=== PATIENT | female | born 1985 | race Caucasian/White ===

== ENCOUNTER → 2021-07-22 12:53 | Outpatient (BNVA) | payer MEDICAID, SELFPAY | PROVIDERS: Visit Provider Physician Assistant ==

== ENCOUNTER → 2021-09-29 07:56 | Outpatient (BNVA) | payer MEDICAID, SELFPAY | PROVIDERS: Visit Provider Surgery ==

== ENCOUNTER 2021-09-30 11:20 | Outpatient (REF) | payer MEDICAID, SELFPAY ==
--- NOTE | ~2021-09-30 | XR_ITS ---
EXAMINATION: XR CHEST CLINICAL INFORMATION: Obesity. COMPARISON: None TECHNIQUE: 2 views of the chest were obtained. FINDINGS: No significant abnormality is noted involving the heart, lungs, mediastinum, bony thorax or soft tissues. XR/XR chest 2V IMPRESSION: Unremarkable examination.
--- NOTE | 2021-09-30 11:29 | ECG_ITS ---
Test Reason : na Blood Pressure : / mmHG Vent. Rate : 076 BPM Atrial Rate : 076 BPM P-R Int : 166 ms QRS Dur : 098 ms QT Int : 392 ms P-R-T Axes : 040 002 026 degrees QTc Int : 441 ms Normal sinus rhythm Minimal voltage criteria for LVH, may be normal variant ( R in aVL ) Borderline ECG No previous ECGs available Referred By: Waqar Espinal Electronically Signed By:DONNIE CONTE MD
[2021-09-30 11:50] LABS: MANUAL DIFF FLAG NO
[2021-09-30 12:07] LABS: Basophils Percent Auto 0.4 % (0-2); Eosinophils Absolute Auto 0.4 X10*3/uL (0.0-0.4); Eosinophils Percent Auto 5.7 % (0-4); Hematocrit 34.4 % (37.0-47.0); Hemoglobin 10.9 g/dl (12.0-16.0); Imm Gran Abs Auto 0.02 X10*3/uL (0.00-0.03); Imm Gran Pct Auto 0.3 % (0.0-0.4); Lymphocytes Absolute Auto 1.7 X10*3/uL (1.2-4.9); Lymphocytes Percent Auto 24.3 % (20-40); Mean Corpuscular HGB Conc 31.7 g/dl (31.0-35.0); Mean Corpuscular Hemoglobin 24.9 pg (27.0-33.0); Mean Corpuscular Volume 78.5 fL (80.0-98.0); Mean Platelet Volume 10.2 fL (9.4-12.3); Monocytes Absolute Auto 0.4 X10*3/uL (0.1-1.2); Neutrophils Absolute Auto 4.5 x10*3/uL (2.0-8.3); Neutrophils Percent Auto 63.3 % (45-73); Platelet Count 382 X10*3/uL (160-400); Red Blood Count 4.38 X10*6/uL (4.20-5.50); Red Cell Distribution Width 15.6 % (11.0-16.0); White Blood Count 7.2 X10*3/uL (4.8-10.8)
[2021-09-30 12:28] LABS: Estimated Average Glucose 111 mg/dL; Hemoglobin A1c % 5.5 %
[2021-09-30 13:03] LABS: Alanine Aminotransferase 16 U/L (0-31); Albumin Level 4.5 g/dL (3.5-5.0); Alkaline Phosphatase 69 U/L (39-117); Anion Gap 11 (12-20); Aspartate Amino Transferase 15 U/L (5-31); Bilirubin Total 0.3 mg/dL (0.0-1.0); Blood Urea Nitrogen 9 mg/dL (9-16); C Reactive Protein 0.96 mg/dL (< or = 0.50); Calcium 9.4 mg/dL (8.4-10.2); Carbon Dioxide 24 mmol/L (22-29); Chloride 106 mmol/L (96-108); Cholesterol 208 mg/dL; Estimated Glomerular Filt Rate > 60; Glucose Random 100 mg/dL (60-115); HDL Cholesterol 44 mg/dL; Iron 34 mcg/dL (30-160); LDL Cholesterol Calculated 137 mg/dl; Percent Iron Saturation 7 % (15-50); Potassium 4.1 mmol/L (3.3-5.1); Sodium 137 mmol/L (135-145); Total Iron Binding Capacity 474 mcg/dL (228-428); Total Protein 7.8 g/dL (6.5-8.0); Triglycerides 138 mg/dL; Unsaturated Iron Binding 440 ug/dL
[2021-09-30 13:28] LABS: Ferritin 10 ng/mL (10-122); Insulin 26 uU/mL (2-29); TSH reflex Free T4 1.42 uIU/mL (0.32-4.0); Vitamin D 25-OH Total 22.2 ng/mL (>30)
[2021-09-30 13:39] LABS: Folate 10.1 ng/mL (> or = 4.0); Vitamin B12 564 pg/mL (200-900)
[2021-10-02 02:57] LABS: Calcium (PTHI) 9.3 mg/dL (8.6-10.2); PTHI 67 pg/mL (14-64)
[2021-10-03 14:07] LABS: Zinc 74 mcg/dL (60-130)
[2021-10-04 11:11] LABS: Vitamin B1 11 nmol/L (8-30)
[2021-10-06 03:31] LABS: Vitamin A 48 mcg/dL (38-98)
== END 2021-09-30 11:21 | disposition home or self-care (01) ==
LOC: HO.XRAY 11:20
PROVIDERS: Visit Provider Surgery
DX: E66.9 Obesity, unspecified (principal); I10 Essential (primary) hypertension; K21.9 Gastro-esophageal reflux disease without esophagitis; Z68.37 Body mass index [BMI] 37.0-37.9, adult
CPT/HCPCS: 36415; 71046; 80053; 80061; 82306; 82607; 82728; 82746; 83036; 83525; 83540; 83970; 84425; 84443; 84590; 84630; 85025; 86140; 93005

== ENCOUNTER 2021-10-14 09:06 | Day surgery (SDC) | payer MEDICAID, SELFPAY ==
[2021-10-07 14:47] VITALS: BMI 36.6
--- NOTE | 2021-10-11 11:03 | MHC.SHP ---
Pre-Procedural Eval Section A Date of Service: 10/11/21 The patient is an INPATIENT: No The History & Physical has been completed within 30 days and I have reviewed it.: Yes Section B Chief Complaint: GERD Relevant Family History (Specify if Yes): No Relevant Social History: None Present Medications: None Medical History: No relevant PMH History of Previous Operations: No relevant previous surgery Allergies: Allergies Allergy/AdvReac Type Severity Reaction Status Date / Time No Known Allergies Allergy Verified 10/07/21 14:51 Review of Systems Sugical H&P ROS: Negative: Constitution, Cardiovascular, Respiratory, Neurological, Psychiatric, Hem-Onc, Allergic/Immunologic, Gastrointestinal, Genitourinary, Musculoskeletal, Integumentary, Endocrine and Eyes/Ears/Nose/Throat Exam Surgical H&P Exam: Normal: HEENT, Normal: Heart, Normal: Lungs, Normal: Extremities, Normal: Abdomen, Normal: Skin and Normal: Neurological Plan Diagnosis/Plan: Unchanged (EGD to assess for H pylori and esophagitis. Risks and complications of bleeding or perforation were discussed.) I have reviewed the history and physical and performed a pertinent physical examination on my patient. No changes have occurred unless specified.
--- NOTE | 2021-10-13 09:42 | HO.ANESPROP2 ---
Documented by User: Tawnya Mazariegos NP 10/13/21 09:45 HPI - Anesthesia Eval Consult details Narrative: 36yo F for Upper Endoscopy PMFSH Active Problems Active Problems: All Active Problems (Updated 10/07/21 @ 16:27 by Kamila Verma RN) Obesity (Acute) BMI 37.0-37.9, adult (Acute) Anemia (Acute) Vitamin D deficiency (Acute) Back pain (Acute) TIA (transient ischemic attack) (Acute) Bipolar 1 disorder (Acute) Anxiety (Acute) Depression (Acute) GERD (gastroesophageal reflux disease) (Acute) Hypertension (Acute) Past Medical History Medical History (Updated 10/07/21 @ 16:27 by Kamila Verma RN) Anxiety Back pain Bipolar 1 disorder Depression GERD (gastroesophageal reflux disease) Hypertension Panic attacks TIA (transient ischemic attack) Family History Family History (Updated 09/29/21 @ 08:43 by Jaden Toscano [facility]) Mother Crohn disease Diabetes Hypertension Father Hypertension Sister No problems noted. Brother No problems noted. Brother No problems noted. Brother No problems noted. Son No problems noted. Son No problems noted. Son No problems noted. Son Lyme disease Surgical History Surgical History (Updated 10/07/21 @ 14:50 by Kamila Verma RN) History of esophagogastroduodenoscopy (EGD) Hx of section Hx of cholecystectomy Hx of tubal ligation Hx of wisdom tooth extraction Social History Social History (Updated 10/07/21 @ 14:50 by Kamila Verma RN) Alcohol intake: former Patient Tobacco Use Status: Never used Tobacco Are you DNR?: No Advance Directives: No Advance Directives Information Provided: Yes Advance Directives on File: No Patient : No FDLMP: 09/14/2021 : No Meds Allergies Allergy/AdvReac Type Severity Reaction Status Date / Time No Known Allergies Allergy Verified 10/07/21 14:51 Home Medications Medication Instructions Recorded Confirmed Last Taken Type clonazepam 1 mg tablet 1 mg PO BID 09/29/21 10/07/21 Unknown History lamotrigine 50 mg tablet,extended 50 mg PO DAILY 09/29/21 10/07/21 Unknown History release 24 hr metoprolol succinate 50 mg 50 mg PO DAILY 09/29/21 10/07/21 Unknown History tablet,extended release 24 hr omeprazole 20 mg capsule,delayed 20 mg PO DAILY 09/29/21 10/07/21 Unknown History release Exam Exam Date and Time: October 13, 2021 0942 Height,Weight and Vital Signs: Height 5 ft 5 in Weight 99.79 kg Pertinent Lab Results Pertinent Lab Results: Laboratory Tests 09/30/21 09/30/21 11:46 11:46 WBC 7.2 Hgb 10.9 L Hct 34.4 L Plt Count 382 Sodium 137 Potassium 4.1 Chloride 106 Carbon Dioxide 24 BUN 9 Creatinine 0.82 Narrative Narrative: EKG 09/2021 Vent. Rate : 076 BPM ? ? Atrial Rate : 076 BPM ?? P-R Int : 166 ms? QRS Dur : 098 ms ? ? QT Int : 392 ms ? ? ? P-R-T Axes : 040 002 026 degrees ?? QTc Int : 441 ms ? Normal sinus rhythm Minimal voltage criteria for LVH, may be normal variant ( R in aVL ) Borderline ECG No previous ECGs available Assessment and Plan Assessment Anesthesia Assessment: Chart Reviewed Documented by User: Bridget Ladd MD 10/14/21 09:59 [facility] Past Medical History Medical History (Updated 10/07/21 @ 16:27 by Kamila Vrema RN) Anxiety Back pain Bipolar 1 disorder Depression GERD (gastroesophageal reflux disease) Hypertension Panic attacks TIA (transient ischemic attack) Family History Family History (Updated 09/29/21 @ 08:43 by MURALI Lowery) Mother Crohn disease Diabetes Hypertension Father Hypertension Sister No problems noted. Brother No problems noted. Brother No problems noted. Brother No problems noted. Son No problems noted. Son No problems noted. Son No problems noted. Son Lyme disease Family history of problems with anesthesia: No Surgical History Surgical History (Updated 10/07/21 @ 14:50 by Kamila Verma RN) History of esophagogastroduodenoscopy (EGD) Hx of section Hx of cholecystectomy Hx of tubal ligation Hx of wisdom tooth extraction History of Problems with Anesthesia: No Social History Social History (Updated 10/07/21 @ 14:50 by Kamila Verma RN) Alcohol intake: former Patient Tobacco Use Status: Never used Tobacco Are you DNR?: No Advance Directives: No Advance Directives Information Provided: Yes Advance Directives on File: No Patient : No FDLMP: 09/14/2021 : No Meds Allergies Allergy/AdvReac Type Severity Reaction Status Date / Time No Known Allergies Allergy Verified 10/07/21 14:51 Home Medications Medication Instructions Recorded Confirmed Last Taken Type clonazepam 1 mg tablet 1 mg PO BID 09/29/21 10/07/21 Unknown History lamotrigine 50 mg tablet,extended 50 mg PO DAILY 09/29/21 10/07/21 Unknown History release 24 hr metoprolol succinate 50 mg 50 mg PO DAILY 09/29/21 10/07/21 Unknown History tablet,extended release 24 hr omeprazole 20 mg capsule,delayed 20 mg PO DAILY 09/29/21 10/07/21 Unknown History release Exam Height,Weight and Vital Signs: Height 5 ft 5 in Weight 99.79 kg Vital Signs Temp Pulse Resp BP Pulse Ox 10/14/21 09:42 99.0 F 69 18 120/72 99 Airway Mallampati Class: III (Small mouth opening) TM Dist: >3cm Neck ROM: Limited Loose/Missing/Broken Teeth: Yes (Some missing) Heart: RRR Lungs: CTAB Assessment and Plan Assessment Anesthesia Assessment: Anesthesia Plan Discussed Final Anesthetic Review Family History of Problems with Anesthesia: No History of Problems with Anesthesia: No NPO: Yes ASA Class: III Final Preanesthetic Review: No Changes in Pt Med Stat, Meds/Allgs Chart Reviewed, Consent Obtained/Reviewed and Anes Risks/Benef Reviewed Patient Risk: Intermediate Procedure Risk: Low Assessment/Block/Sedation in SS: Assess/Block/Sedation-SS Anesthetic Plan Anesthetic Plan: MAC: Disposition: Standard PACU
[2021-10-14 09:42] VITALS: BP 120/72; PULSE 69; RESP 18; TEMP 37.2; O2SAT 99; BMI 36.6
[2021-10-14 09:51] LABS: COVID-19 Test Negative (Negative); IDNOW Serial# 9DD0AD1C
[2021-10-14 10:05] VITALS: BP 120/72; PULSE 69; RESP 18; TEMP 37.2; O2SAT 99
--- NOTE | 2021-10-14 14:02 | PM.OP ---
Brief Operative Note Date of Service: 10/14/21 Pre-op diagnosis: GERD Post-op diagnosis: same Procedure: PROCEDURE DATE: 10/14/2021 PREOPERATIVE DIAGNOSIS: GERD and obesity POSTOPERATIVE DIAGNOSIS: ?Same as above. 1) esophagitis III, 2) gastric polyps, PROCEDURE: [id number] with biopsies Surgeon: ?Cameron Espinal M.D.. Ph.D. Devulcanizer Operator: None ? Anesthesia: IV sedation Estimated blood loss: ?Minimal FINDINGS AND PROCEDURE: ? OPERATIVE INDICATIONS: ?The patient is a 36 year old female known to me who is evaluated for morbid obesity and bariatric surgery. She had severe GERD and was not able to discontinue the Omeprazole for 2 weeks to perform the H. pylori breath test. She presents for an endoscopy and a biopsy. Risks and complications of the surgery were discussed with the patient in advance particularly the possibility of perforation or bleeding that may require surgical intervention. The patient understood the risks and was in agreement with the plan. ? PROCEDURE: After informed consent was obtained by the patient, the patient was ?transferred to the Operating Room and was placed in the supine position.? After successful induction of IV sedation, a mouth block was inserted and the patient was placed in the left lateral decubitus position. An upper endoscopy was performed next, the oropharynx and esophagus appeared within the normal limits. There was no hiatal hernia. The z-line was irregular with tongus of gastric mucosa protruding into the esophagus in more than 50% circumference. Two biopsies were obtained from the distal esohagus 2-3 cm proximal to the GE junction and two additional biopsies from the GE junction. The stomach was entered and it appeared to be of normal size. There was no gastritis. There was no stricture or ulcer. Biopsies were obtained from the proximal stomach as well as the distal antrum. There were a few polyps especially in the gastric fundus from PPI treatment. No significant bleeding was noted from any of the biopsy sites. The scope was then advanced into the duodenum which appeared to be normal as well. At that point the duodenum ?and the stomach were decompressed and the scope was withdrawn from the patient's mouth. The patient extubated and was transferred in stable condition to the Recovery Room for further care. I was present and performed all steps of the procedure. There were no residents to assist with this case. Cameron Espinal M.D., Ph.D. Surgeon: Waqar Espinal MD Anesthesia: MAC Was an Devulcanizer Operator used for this Procedure?: No Estimated blood loss (mL): 0 IV fluids (mL): 500 Urine output (mL): 0 (No Jeffrey to record) Pathology: other (1) GE junction x2, distal esophagus x2, stomach x1) Condition: stable Disposition: PACU
[2021-10-14 14:43] VITALS: BP 111/55; PULSE 85; RESP 16; TEMP 36.2; O2SAT 96
[2021-10-14 14:59] VITALS: BP 100/51; PULSE 77; RESP 16; O2SAT 99
[2021-10-14 15:14] VITALS: BP 123/74; PULSE 77; RESP 16; TEMP 36.2; O2SAT 99
== END 2021-10-14 16:00 | disposition home or self-care (01) ==
PROVIDERS: Visit Provider Surgery
PROC: 0DJ08ZZ Inspection of Upper Intestinal Tract, Via Natural or Artificial Opening Endoscopic (ICD-10-PCS; CPT 43235; principal; 2021-10-14 10:30)
DX: K21.9 Gastro-esophageal reflux disease without esophagitis (principal); K20.80 Other esophagitis without bleeding; K31.7 Polyp of stomach and duodenum; E66.01 Morbid (severe) obesity due to excess calories; Z68.37 Body mass index [BMI] 37.0-37.9, adult; I10 Essential (primary) hypertension; F31.9 Bipolar disorder, unspecified; Z79.899 Other long term (current) drug therapy; Z86.73 Personal history of transient ischemic attack (TIA), and cerebral infarction without residual deficits; Z90.49 Acquired absence of other specified parts of digestive tract; Z20.822 Contact with and (suspected) exposure to COVID-19
CPT/HCPCS: 43239; 36415; 87635; 88305; 88342; J2250

== ENCOUNTER → 2021-10-24 07:59 | Outpatient (BNVA) | payer MEDICAID, SELFPAY | PROVIDERS: Visit Provider Surgery ==

== ENCOUNTER → 2021-10-31 08:08 | Outpatient (BNVA) | payer MEDICAID, SELFPAY | PROVIDERS: PCP Internal Medicine; Visit Provider Dietitian, Registered | DX: E66.9 Obesity, unspecified (principal); Z68.35 Body mass index [BMI] 35.0-35.9, adult | CPT/HCPCS: 97802 ==

== ENCOUNTER 2021-11-19 08:19 | Outpatient (REF) | payer MEDICAID, SELFPAY ==
--- NOTE | ~2021-11-19 | US_ITS ---
EXAMINATION: US COMPLETE ABDOMEN WITH LIVER ELASTOGRAPHY CLINICAL INFORMATION: Obesity COMPARISON: None. TECHNIQUE: Real-time imaging of the abdominal viscera. Noninvasive ultrasound liver fibrosis assessment is performed using Marisel ElastPQ point quantification shear wave elastography (pSWE) with a C5-2 MHz transducer. Multiple elastography samples are obtained. FINDINGS: PANCREAS: Normal. The visualized pancreatic head and body are normal in appearance. The remainder of the pancreas is obscured from visualization by the overlying bowel gas. ABDOMINAL AORTA: The proximal, middle, and distal aortic segments are normal in caliber. INFERIOR VENA CAVA: Visualized portions are normal. LIVER: The liver demonstrates normal size and contour. Slightly increased liver parenchymal echogenicity suggesting hepatic steatosis. No focal lesion or intrahepatic biliary duct dilatation. The right lobe measures 15.3 cm in length. The left lobe measures 10.1 cm in length. Portal flow is towards the liver (hepatopetal). Shear wave liver elastography median stiffness is 1.42 m/s (reference: normal median stiffness is 1.3 m/s or less). IQR/median stiffness to assess sampling precision is 0.07 (reference: good quality data set is IQR/median stiffness of 0.15 or less). GALLBLADDER: Status post cholecystectomy. COMMON BILE DUCT: Normal in caliber measuring 0.7 cm in diameter. RIGHT KIDNEY: Normal. No hydronephrosis. No renal calculi or focal parenchymal lesions. The kidney measures 11.9 cm in maximum dimension. LEFT KIDNEY: Normal. No hydronephrosis. No renal calculi or focal parenchymal lesions. The kidney measures 12.9 cm in maximum dimension. SPLEEN: Normal. The spleen measures 11.7 cm in maximum dimension. FREE FLUID: None. US/US abdomen comp w elastography IMPRESSION: 1. Mildly increased liver parenchymal echogenicity suggesting hepatic steatosis. 2. Liver elastography: In the absence of other known clinical signs, measurements rule out compensated advanced chronic liver disease. If there are known clinical signs, further testing may be needed for confirmation. REFERENCE: Society of Radiologists in Ultrasound Liver Stiffness Thresholds (2020): LIVER STIFFNESS THRESHOLDS: *Liver Stiffness equal or less than 1.3 m/s: High probability of being normal. *Liver Stiffness less than 1.7 m/s: In the absence of other known clinical signs, rules out compensated advanced chronic liver disease. *Liver Stiffness 1.7-2.1 m/s: Suggestive of compensated advanced chronic liver disease but need further test for confirmation. *Liver Stiffness over 2.1 m/s: Rules in compensated advanced chronic liver disease. *Liver Stiffness over 2.4 m/s: Suggestive of clinically significant portal hypertension. QUALITY OF DATA SET: *IQR/Median value equal or less than 0.15 implies a quality data set. *IQR/Median value over 0.15 implies a poor quality data set. SIGNIFICANT CHANGE FROM PRIOR EXAM: Significant change if liver stiffness measurement is 10% or greater from prior exam. OTHER CONSIDERATIONS: The stage of liver fibrosis may be overestimated in the setting of acute hepatitis, liver inflammation, elevated liver function tests, hepatic vascular congestion, obstructive cholestasis, non-fasting state, and infiltrative diseases such as amyloidosis and lymphoma. In some patients with NAFLD, the liver stiffness thresholds for compensated advanced chronic liver disease may be lower. In causes other than viral hepatitis and NAFLD, liver stiffness thresholds are not well established.
--- NOTE | ~2021-11-19 | FL_ITS ---
EXAMINATION: XR FL UPPER GI WITH AIR CLINICAL INFORMATION: Obesity. COMPARISON: None TECHNIQUE: Air-contrast upper GI examination. FINDINGS: There is normal apposition of the focal cords while saying E. There is normal elevation of the soft palate while saying candy. No nasopharyngeal reflux or tracheal aspiration. No Zenker's diverticulum or significant cricopharyngeal hypertrophy. There is normal esophageal motility without evidence of persistent stricture or ulceration. There was spontaneous gastroesophageal reflux to the opal during this study with a patulous GE junction present. The stomach demonstrates normal distensibility without abnormal mass or ulceration. There was no delay in gastric emptying. The duodenal bulb and sweep appeared unremarkable. FLUOROSCOPY TIME: 1.5 minutes. DOSE AREA PRODUCT: 13.688 Gy-cm2 (thomas-centimeter squared). FL/FL upper GI w air IMPRESSION: Spontaneous gastroesophageal reflux to the level of the opal.
== END 2021-11-19 08:20 | disposition home or self-care (01) ==
LOC: HO.US 08:19
PROVIDERS: Visit Provider Surgery
DX: E66.9 Obesity, unspecified (principal); Z68.37 Body mass index [BMI] 37.0-37.9, adult; I10 Essential (primary) hypertension; K21.9 Gastro-esophageal reflux disease without esophagitis
CPT/HCPCS: 74246; 76705; 76981

== ENCOUNTER → 2021-11-21 13:17 | Outpatient (BNVA) | payer MEDICAID, SELFPAY | PROVIDERS: PCP Internal Medicine; Visit Provider Physician Assistant ==

== ENCOUNTER 2021-12-11 11:16 | Inpatient (IN) | payer MEDICAID, SELFPAY ==
[2021-11-21 13:16] LABS: MANUAL DIFF FLAG NO
[2021-11-21 13:56] LABS: Basophils Percent Auto 0.5 % (0-2); Eosinophils Absolute Auto 0.2 X10*3/uL (0.0-0.4); Eosinophils Percent Auto 3.4 % (0-4); Hematocrit 35.9 % (37.0-47.0); Imm Gran Abs Auto 0.03 X10*3/uL (0.00-0.03); Imm Gran Pct Auto 0.5 % (0.0-0.4); Lymphocytes Absolute Auto 1.5 X10*3/uL (1.2-4.9); Mean Corpuscular HGB Conc 30.6 g/dl (31.0-35.0); Mean Corpuscular Hemoglobin 25.4 pg (27.0-33.0); Mean Corpuscular Volume 82.9 fL (80.0-98.0); Mean Platelet Volume 10.2 fL (9.4-12.3); Monocytes Absolute Auto 0.5 X10*3/uL (0.1-1.2); Monocytes Percent Auto 7.9 % (2-11); Neutrophils Absolute Auto 4.2 x10*3/uL (2.0-8.3); Neutrophils Percent Auto 64.7 % (45-73); Platelet Count 333 X10*3/uL (160-400); Red Blood Count 4.33 X10*6/uL (4.20-5.50); Red Cell Distribution Width 17.5 % (11.0-16.0); White Blood Count 6.4 X10*3/uL (4.8-10.8)
[2021-11-21 14:02] LABS: INTERNATIONAL NORM RATIO 1.2 (0.9-1.1); Prothrombin Time 13.9 SEC (9.9-13.0)
[2021-11-21 14:05] LABS: Partial Thromboplastin Time 39.8 SEC (24.1-38.0)
[2021-11-21 14:10] LABS: Estimated Average Glucose 94 mg/dL; Hemoglobin A1c % 4.9 %
[2021-11-21 14:14] LABS: Alanine Aminotransferase 24 U/L (0-31); Albumin Level 4.6 g/dL (3.5-5.0); Alkaline Phosphatase 66 U/L (39-117); Anion Gap 12 (12-20); Aspartate Amino Transferase 18 U/L (5-31); Bilirubin Total 0.4 mg/dL (0.0-1.0); Blood Urea Nitrogen 12 mg/dL (9-16); C Reactive Protein 0.92 mg/dL (< or = 0.50); Calcium 9.8 mg/dL (8.4-10.2); Carbon Dioxide 30 mmol/L (22-29); Chloride 102 mmol/L (96-108); Cholesterol 150 mg/dL; Estimated Glomerular Filt Rate > 60; Glucose Random 87 mg/dL (60-115); HDL Cholesterol 38 mg/dL; LDL Cholesterol Calculated 98 mg/dl; Potassium 3.8 mmol/L (3.3-5.1); Sodium 140 mmol/L (135-145); Total Protein 7.8 g/dL (6.5-8.0); Triglycerides 73 mg/dL
[2021-11-21 14:37] LABS: TSH reflex Free T4 0.91 uIU/mL (0.32-4.0)
[2021-11-21 15:03] LABS: Insulin 10 uU/mL (2-29)
--- NOTE | 2021-11-22 19:20 | MHC.SHP ---
Pre-Procedural Eval Section A Date of Service: 11/22/21 The patient is an INPATIENT: Yes The History & Physical has been completed within 30 days and I have reviewed it.: No Section B Chief Complaint: obesity Relevant Family History (Specify if Yes): Yes Relevant Social History: None Present Medications: None Medical History: No relevant PMH History of Previous Operations: No relevant previous surgery Allergies: Allergies Allergy/AdvReac Type Severity Reaction Status Date / Time No Known Allergies Allergy Verified 11/19/21 13:36 Review of Systems Sugical H&P ROS: Negative: Constitution, Cardiovascular, Respiratory, Neurological, Psychiatric, Hem-Onc, Allergic/Immunologic, Gastrointestinal, Genitourinary, Musculoskeletal, Integumentary, Endocrine and Eyes/Ears/Nose/Throat Exam Surgical H&P Exam: Normal: HEENT, Normal: Heart, Normal: Lungs, Normal: Extremities, Normal: Abdomen, Normal: Skin and Normal: Neurological Plan Diagnosis/Plan: Unchanged I have reviewed the history and physical and performed a pertinent physical examination on my patient. No changes have occurred unless specified.
--- NOTE | 2021-12-08 20:03 | MHC.SHP ---
Pre-Procedural Eval Section A Date of Service: 12/08/21 The patient is an INPATIENT: Yes The History & Physical has been completed within 30 days and I have reviewed it.: Yes Section B Chief Complaint: obesity Relevant Family History (Specify if Yes): No Relevant Social History: None Present Medications: None Medical History: No relevant PMH History of Previous Operations: No relevant previous surgery Allergies: Allergies Allergy/AdvReac Type Severity Reaction Status Date / Time No Known Allergies Allergy Verified 11/19/21 13:36 Review of Systems Sugical H&P ROS: Negative: Constitution, Cardiovascular, Respiratory, Neurological, Psychiatric, Hem-Onc, Allergic/Immunologic, Gastrointestinal, Genitourinary, Musculoskeletal, Integumentary, Endocrine and Eyes/Ears/Nose/Throat Exam Surgical H&P Exam: Normal: HEENT, Normal: Heart, Normal: Lungs, Normal: Extremities, Normal: Abdomen, Normal: Skin and Normal: Neurological Plan Diagnosis/Plan: Unchanged I have reviewed the history and physical and performed a pertinent physical examination on my patient. No changes have occurred unless specified.
[2021-12-09 11:14] VITALS: BMI 33.6
--- NOTE | 2021-12-10 09:45 | P.CONAN_ITS ---
Documented by User: Tawnya Mazariegos NP 12/10/21 09:47 HPI - Anesthesia Eval Consult details Narrative: 36yo F for Gastrectomy Sleeve,EGD,poss diaphragmatic hernia,poss ventral hernia,poss open PMFSH Active Problems Active Problems: All Active Problems (Updated 12/09/21 @ 11:11 by Kamila Verma RN) Obesity (Acute) BMI 37.0-37.9, adult (Acute) Anemia (Acute) Vitamin D deficiency (Acute) BMI 34.0-34.9,adult (Acute) Back pain (Acute) TIA (transient ischemic attack) (Acute) Bipolar 1 disorder (Acute) Anxiety (Acute) Depression (Acute) GERD (gastroesophageal reflux disease) (Acute) Hypertension (Acute) Past Medical History Medical History (Updated 12/09/21 @ 11:11 by Kamila Verma RN) Anxiety Back pain Bipolar 1 disorder Depression GERD (gastroesophageal reflux disease) Hx gestational diabetes Hypertension Panic attacks TIA (transient ischemic attack) Family History Family History (Updated 09/29/21 @ 08:43 by Jaden Toscano [facility]) Mother Crohn disease Diabetes Hypertension Father Hypertension Sister No problems noted. Brother No problems noted. Brother No problems noted. Brother No problems noted. Son No problems noted. Son No problems noted. Son No problems noted. Son Lyme disease Family history of problems with anesthesia: No Surgical History Surgical History (Updated 12/09/21 @ 11:11 by Kamila Verma RN) History of esophagogastroduodenoscopy (EGD) Hx of section Hx of cholecystectomy Hx of tubal ligation Hx of wisdom tooth extraction History of Problems with Anesthesia: No Social History Social History (Updated 12/09/21 @ 11:17 by Kamila Verma RN) Housing: House Are you a primary direct care counselor to a significant other at home: Yes Do you presently have visiting nurse or other home services: No Alcohol intake: former Patient Tobacco Use Status: Never used Tobacco Use of substances other than those prescribed or required for medical reasons: No Have you been hit, kicked, punched, or otherwise hurt by someone within the past year? If so, by whom?: No Are you DNR?: No Advance Directives: No Advance Directives Information Provided: Yes Advance Directives on File: No Recently lost weight without trying: No Patient : No FDLMP: 12/07/2021 : No Poor oral hygiene: No Meds Allergies Allergy/AdvReac Type Severity Reaction Status Date / Time No Known Allergies Allergy Verified 12/11/21 11:11 Home Medications Medication Instructions Recorded Confirmed Last Taken Type clonazepam 1 mg 1 mg PO BID 09/29/21 12/09/21 12/11/21 07:00 History tablet lamotrigine 50 200 mg PO DAILY 09/29/21 12/09/21 10/14/21 History mg tablet,extended release 24 hr metoprolol 50 mg PO DAILY 09/29/21 12/09/21 12/11/21 07:00 History succinate 50 mg tablet,extended release 24 hr omeprazole 20 20 mg PO BID 10/31/21 12/09/21 Unknown History mg cap capsule,delayed release Exam Exam Date and Time: December 10, 2021 0945 Height,Weight and Vital Signs: Height 5 ft 5 in Weight 91.626 kg Pertinent Lab Results Pertinent Lab Results: Laboratory Tests 11/21/21 11/21/21 11/21/21 13:08 13:15 13:15 WBC 6.4 RBC 4.33 Hgb 11.0 L Hct 35.9 L MCV 82.9 MCH 25.4 L MCHC 30.6 L RDW 17.5 H Plt Count 333 MPV 10.2 Immature Gran % (Auto) 0.5 H Neut % (Auto) 64.7 Lymph % (Auto) 23.0 Evangeline % (Auto) 7.9 Eos % (Auto) 3.4 Baso % (Auto) 0.5 Lymph # (Auto) 1.5 Evangeline # (Auto) 0.5 Eos # (Auto) 0.2 Baso # (Auto) 0.0 Abs Immat Gran (auto) 0.03 Absolute Neuts (auto) 4.2 Absolute Nucleated RBC 0.000 Nucleated RBC % (auto) 0.0 PT 13.9 H INR 1.2 H APTT 39.8 H Sodium Potassium Chloride Carbon Dioxide Anion Gap BUN Creatinine Estim Creat Clear Calc Estimated GFR Random Glucose Estimat Average Glucose Hemoglobin A1c % Insulin Level Calcium Total Bilirubin AST ALT Alkaline Phosphatase C-Reactive Protein Total Protein Albumin Triglycerides Cholesterol LDL Cholesterol, Calc HDL Cholesterol TSH Blood Type O Positive Antibody Screen NEGATIVE 11/21/21 11/21/21 13:15 13:15 WBC RBC Hgb Hct MCV MCH MCHC RDW Plt Count MPV Immature Gran % (Auto) Neut % (Auto) Lymph % (Auto) Evangeline % (Auto) Eos % (Auto) Baso % (Auto) Lymph # (Auto) Evangeline # (Auto) Eos # (Auto) Baso # (Auto) Abs Immat Gran (auto) Absolute Neuts (auto) Absolute Nucleated RBC Nucleated RBC % (auto) PT INR APTT Sodium 140 Potassium 3.8 Chloride 102 Carbon Dioxide 30 H Anion Gap 12 BUN 12 Creatinine 0.85 Estim Creat Clear Calc TNP Estimated GFR > 60 Random Glucose 87 Estimat Average Glucose 94 Hemoglobin A1c % 4.9 Insulin Level 10 Calcium 9.8 Total Bilirubin 0.4 AST 18 ALT 24 Alkaline Phosphatase 66 C-Reactive Protein 0.92 H Total Protein 7.8 Albumin 4.6 Triglycerides 73 Cholesterol 150 D LDL Cholesterol, Calc 98 HDL Cholesterol 38 TSH 0.91 Blood Type Antibody Screen Narrative Narrative: EKG 09/2021 Vent. Rate : 076 BPM ? ? Atrial Rate : 076 BPM ?? P-R Int : 166 ms? QRS Dur : 098 ms ? ? QT Int : 392 ms ? ? ? P-R-T Axes : 040 002 026 degrees ?? QTc Int : 441 ms ? Normal sinus rhythm Minimal voltage criteria for LVH, may be normal variant ( R in aVL ) Borderline ECG No previous ECGs available Assessment and Plan Assessment Anesthesia Assessment: Chart Reviewed Final Anesthetic Review Family History of Problems with Anesthesia: No History of Problems with Anesthesia: No Documented by User: Carlos Ibarra MD 12/11/21 13:14 [facility] Past Medical History Medical History (Updated 12/09/21 @ 11:11 by Kamila Verma RN) Anxiety Back pain Bipolar 1 disorder Depression GERD (gastroesophageal reflux disease) Hx gestational diabetes Hypertension Panic attacks TIA (transient ischemic attack) Family History Family History (Updated 09/29/21 @ 08:43 by MURALI Lowery) Mother Crohn disease Diabetes Hypertension Father Hypertension Sister No problems noted. Brother No problems noted. Brother No problems noted. Brother No problems noted. Son No problems noted. Son No problems noted. Son No problems noted. Son Lyme disease Surgical History Surgical History (Updated 12/09/21 @ 11:11 by Kamila Verma RN) History of esophagogastroduodenoscopy (EGD) Hx of section Hx of cholecystectomy Hx of tubal ligation Hx of wisdom tooth extraction Social History Social History (Updated 12/09/21 @ 11:17 by Kamila Verma RN) Housing: House Are you a primary direct care counselor to a significant other at home: Yes Do you presently have visiting nurse or other home services: No Alcohol intake: former Patient Tobacco Use Status: Never used Tobacco Use of substances other than those prescribed or required for medical reasons: No Have you been hit, kicked, punched, or otherwise hurt by someone within the past year? If so, by whom?: No Are you DNR?: No Advance Directives: No Advance Directives Information Provided: Yes Advance Directives on File: No Recently lost weight without trying: No Patient : No FDLMP: 12/07/2021 : No Poor oral hygiene: No Meds Allergies Allergy/AdvReac Type Severity Reaction Status Date / Time No Known Allergies Allergy Verified 12/11/21 11:11 Home Medications Medication Instructions Recorded Confirmed Last Taken Type clonazepam 1 mg 1 mg PO BID 09/29/21 12/09/21 12/11/21 07:00 History tablet lamotrigine 50 200 mg PO DAILY 09/29/21 12/09/21 10/14/21 History mg tablet,extended release 24 hr metoprolol 50 mg PO DAILY 09/29/21 12/09/21 12/11/21 07:00 History succinate 50 mg tablet,extended release 24 hr omeprazole 20 20 mg PO BID 10/31/21 12/09/21 Unknown History mg cap capsule,delayed release Exam Airway Mallampati Class: II TM Dist: >3cm Neck ROM: Full Assessment and Plan Assessment Anesthesia Assessment: Anesthesia Plan Discussed Final Anesthetic Review NPO: Yes ASA Class: III Patient Risk: Intermediate Procedure Risk: Intermediate Anesthetic Plan Anesthetic Plan: GA Disposition: Standard PACU
[2021-12-11] VITALS (13 sets, daily range): BP systolic 124–151; BP diastolic 72–93; PULSE 70–90; RESP 14–20; TEMP 36.2–36.9; O2SAT 95–100
[2021-12-11] MEDS: Lactated Ringers 1,000 ML 100 ML IVCONT ×3 (11:50→17:04)
[2021-12-11 11:54] LABS: COVID-19 Test Negative (Negative); IDNOW Serial# 08D9AD1C
--- NOTE | 2021-12-11 13:30 | PM.OP ---
Brief Operative Note Date of Service: 12/11/21 Pre-op diagnosis: Severe obesity with comorbidities (see below) Post-op diagnosis: same (& incarcerated diaphragmatic hernia) Procedure: INITIAL PATIENT BMI ON PRESENTATION AT OUR OFFICE: 38 kg/m2 LAST BMI BEFORE SURGERY: 33.5 kg/m2 COMORBIDITIES: CVA, GERD, depression, anxiety, bipolar disorder, back pain, liver steatosis, liver fibrosis, esophagitis, hypertension ?The patient presented to the Weight Management Program with significant obesity that was negatively impacting the patient's comorbidities as listed above.? The program is a phased program with a special focus on preoperative medical weight management to promote substantial weight loss and prepare the patients for the second phase of the program: bariatric surgery. The patient participated in an intensive weekly lifestyle ?intervention and exercise program during which the patient ?has lost between the initial office visit and the last preoperative visit 25lbs, or 10.79% of initial actual body weight. It was deemed appropriate for the patient to now have bariatric surgery. In light of the current Covid-19 pandemic and the well documented strong association of obesity and increased risk of worse outcomes if infected with Covid-19 (REFERENCES:https://pubmed.ncbi.nlm.nih.gov/59716327/,?https://pubmed.ncbi.nlm.nih.gov/16211027/), any delay in undergoing bariatric surgery may lead to the patient's worsening health condition and increased?risk of more severe Covid-19 disease if infected. In addition a recent?study from [facility] published in [facility] on 11/10/2021 ([email or web address]) found that, among patients with obesity, substantial weight loss achieved with surgery was associated with improved outcomes of COVID-19 infection. The findings suggest that obesity can be a modifiable risk factor for the severity of COVID-19 infection. In addition, the patient met the BMI-criteria for bariatric surgery based on the BMI on initial presentation. The patient should not be penalized for achieving such weight loss because ?it is not sustainable long-term without surgical intervention and it was achieved in preparation for bariatric surgery ?under my direction and based on my published research ([email or web address]).[email or web address] and?https://www.soard.org/article/[email or web address](39)29459-X/pdf) ?that a 10% preoperative weight loss improves long-term weight loss after surgery and reduces perioperative complications.? Insurance carriers such as [facility] have endorsed my recommendations ?and have included in their policies criteria to include a 10% preoperative weight loss requirement. PROCEDURE: Esophago-gastroscopy, laparoscopic repair of incarcerated diaphragmatic hernia, laparoscopic lysis of adhesions, laparoscopic sleeve gastrectomy and laparoscopic gastropexy INDICATIONS: This is a 36 year-old female who was electively scheduled for laparoscopic, possibly open sleeve gastrectomy. The risks and complications of the procedure were discussed with the patient in advance, particularly the possibility of ; pulmonary embolism; staple line leak; bleeding; GERD; cardiac, pulmonary, or renal complications; as well as long-term problems such as insufficient weight loss, vitamin deficiency, strictures, or ulcers. The patient understood all the risks, and was in agreement to proceed with surgery. DESCRIPTION OF PROCEDURE: After informed consent was obtained from the patient, the patient was given preoperative antibiotics, and was transferred to the operating room. After successful induction of general anesthesia, pneumatic compression devices were placed on both lower extremities. An upper endoscopy was performed next. The oropharynx and esophagus appeared to be within normal limits. There was a diaphragmatic hernia present of moderate size that was not reported at the preoperative upper GI. The stomach was entered. Then after all fluid and air were suctioned and the stomach was fully decompressed, the scope was withdrawn and secured in the mid esophagus. The patient was then prepped and draped in the usual sterile manner, and abdominal access was established at the right upper quadrant with the Kelly technique. A 12 mm blunt port was inserted, and the abdomen was insufflated with CO2 to a pressure of 15 mmHg. Under direct visualization, additional ports were placed, specifically two 5 mm Versi-step ports to the left upper quadrant, and a 5 mm Versi-Step port to the right upper quadrant. 1% lidocaine plain was used to infiltrate all port sites as well as all fascia defects. Following that, the patient was placed in a steep reverse Trendelenburg position. An additional 5 mm port was placed to the right flank for the Mediflex retractor that was used to retract the left lobe of the liver. The gastro-esophageal fat pad was opened with the ultrasonic device (Thunderbeat, Olympus) and the anterior esophagus and hiatus were exposed. The angle of His was opened with the ultrasonic device the fundus of the stomach from any diaphragmatic and splenic attachments. I then opened the gastrocolic ligament between the transverse colon and the greater curvature of the stomach with the ultrasonic device to enter the lesser sac and facilitate the ligation of the short gastric vessels. I started at a mid-point along the greater curvature and using the Thunderbeat, all short gastric vessels were divided all the way to the angle of His until the left balbir was completely dissected at its entirety. I then divided the gastro-colic ligament distally to a distance of about 3-4 cm proximal to the esophagus. There were extensive congenital adhesions between the pancreas and posterior gastric wall. Those were lysed completely with the ultrasonic device. Adhesiolysis took approximately 45 min to complete. There was an obvious significant-sized incarcerated hiatal hernia. I continued dissecting along the hiatus toward the left balbir and the angle of His. I fully mobilized the fat pad that was incarcerated in the hernia. I then continued by dissecting even further into the posterior retro-esophageal space all the way to the angle of His. I continued to mobilize the esophagus into the mediastinum circumferentially. Both vagal nerves were seen and preserved. At that point, I was able to have at least 3 to 5 cm of esophagus into the abdomen.? After I completely mobilized the esophagus from both the left and right balbir and I had a good mobilization of the esophagus circumferentially, I closed the hernia defect with 7 interrupted #0 Surgidac sutures using the Endo Stitch device, five of which was placed posterior and two of which anterior to the esophagus. ? The stomach was then divided transversely with one Endo YEFRI-45 purple, two YEFRI-45 orange loads and fiveGIA-60 articulating orange loads using the AEON stapler and loads. Every effort was made that the gastric sleeve had a tubular shape and an even caliber throughout. Once the sleeve resection was completed, the staple line of the gastric sleeve was reinforced with Hemoclips. The resected stomach was retrieved without difficulty from the Kelly port. A gastropexy was then performed in order to prevent postoperative GERD and partial gastric volvulus. Several interrupted 2.0 Surgidac sutures were placed between the sleeve's staple line and the previously divided greater omentum and gastro-colic ligament using the Endo-Stitch device. ?An upper endoscopy was performed. There was no narrowing at the GE junction. The scope was easily advanced all the way to the pylorus which was clearly visualized. There was no narrowing anywhere and the sleeve's caliber was even throughout. The sleeve's staple line was inspected and there was no evidence of ischemia, bleeding or dehiscence. At that point the gastroscope was withdrawn from the patient?s mouth while we were decompressing the bowel and the stomach from any remaining air. I looked into the lesser sac to see how the sleeve was situating and it was situating well. There was no bleeding from the staple line, spleen, or short gastric vessels. The Mediflex retractor was removed, and the undersurface of the liver was inspected and there was no bleeding. The patient was placed in supine position. I closed the fascial defect of the 12 mm port site with a figure of eight #1 Polysorb suture. Then 100 cc 0.25 % Marcaine plain with 10 mg of Dexamethasone were used to infiltrate the fascial closure as well as all skin incisions. At this point, the abdomen was deflated, all ports were removed under direct vision, and no bleeding was noted from any of the port sites. The skin incisions were irrigated with saline and were closed with 4-0 absorbable monofilament sutures. Steri-Strips and OpSites were used to cover all incisions. The patient was extubated and was transferred in stable condition to the recovery room for further care. I was present and performed all lewis parts of the procedure. Katlin Monte was the list of first job ideas. There were no residents to assist with this case. Cameron Espinal MD, PhD, FACS Surgeon: Waqar Espinal MD Anesthesia: GETA, local and other (TAP block) Was an School Clerk used for this Procedure?: No School Clerk: Amanda Monte Estimated blood loss (mL): 10 Urine output (mL): 0 (No Jeffrey to gravity) Pathology: other (Stomach) Condition: stable Disposition: PACU
--- NOTE | 2021-12-11 13:33 | P.PNGS_ITS ---
Subjective Subjective Date of Service: 12/12/21 Interval history: Patient has mild incisional pain, but was able to ambulate and use the incentive spirometer. She is tolerating phase 1 bariatric diet Physical Exam Verdana 4l Vital Signs: Verdana 4d Verdana 4d Vital Signs: Verdana 4d Verdana 4Bd Last Vital Signs Verdana 4d Pulp Mill Supervisor New 4d Pulp Mill Supervisor New 4d Temp 98.1 F 12/11/21 11:19 Pulp Mill Supervisor New 4d Pulse 70 12/11/21 11:19 Pulp Mill Supervisor New 4d Resp 16 12/11/21 11:19 BP 124/76 12/11/21 11:19 Pulse Ox 100 12/11/21 11:19 BMI result Body Mass Index 33.6 GI: Inspection: Yes normal to inspection, Yes incision (clean, dry and intact) and Yes obesity Extrem: Right lower extremity: normal to inspection (no calf tenderness) Left lower extremity: normal to inspection (no calf tenderness) Objective Data Active Medications Hydromorphone HCl (Hydromorphone Hcl 0.5 Mg/0.5 Ml Syringe) 0.5 mg IVPUSH Q5M PRN; Protocol PRN Reason: Pain, Severe (Pain Scale 7-10) Lactated Ringer's (Lr) 1,000 mls @ 100 mls/hr IVCONT .Q10H [facility] Last Admin: 12/11/21 11:50 Dose: 100 mls/hr Documented by: DEACON Lactated Ringer's (Lr) 1,000 mls @ 100 mls/hr IVCONT .Q10H [facility] Last Admin: 12/11/21 11:50 Dose: 100 mls/hr Documented by: DEACON Promethazine HCl 12.5 mg/ (Sodium Chloride) 50.5 mls @ 202 mls/hr IV ONCE PRN PRN Reason: Nausea and Vomiting Ondansetron HCl (Ondansetron Hcl 4 Mg/2 Ml Vial) 4 mg IVPUSH ONCE PRN PRN Reason: Nausea and Vomiting Labs CBC & Chem 7: 12/12/21 05:27 12/12/21 05:27 Labs: Laboratory Results - last 24 hr 12/11/21 11:00 COVID-19 ([facility]) Negative COVID-19 Clin Com See Note Procedures Date of Service Date of Service: 12/12/21 Progress Note: A&P Assessment and plan (1) Obesity: Status: Acute Assessment and Plan: s/p laparoscopic sleeve gastrectomy, lysis of adhesions repair of diaphragmatic hernia, and gastropexy Doing well Check am labs. If OK, will discharge home? (2) BMI 33.0-33.9,adult: Status: Acute (3) GERD (gastroesophageal reflux disease): Status: Acute (4) Hypertension: Status: Acute (5) Depression: Status: Acute (6) Anxiety: Status: Acute (7) Bipolar 1 disorder: Status: Acute (8) TIA (transient ischemic attack): Status: Acute (9) Back pain: Status: Acute (10) Esophagitis determined by endoscopy: Status: Acute (11) S/P laparoscopic sleeve gastrectomy: Status: Acute (12) S/P repair of paraesophageal hernia: Status: Acute (13) Paraesophageal hernia: Status: Acute Fall Risk Details Current Medications: Current Medications Hydromorphone HCl (Hydromorphone Hcl 0.5 Mg/0.5 Ml Syringe) 0.5 mg IVPUSH Q5M PRN; Protocol PRN Reason: Pain, Severe (Pain Scale 7-10) Lactated Ringer's (Lr) 1,000 mls @ 100 mls/hr IVCONT .Q10H [facility] Last Admin: 12/11/21 11:50 Dose: 100 mls/hr Documented by: Lactated Ringer's (Lr) 1,000 mls @ 100 mls/hr IVCONT .Q10H [facility] Last Admin: 12/11/21 11:50 Dose: 100 mls/hr Documented by: Promethazine HCl 12.5 mg/ (Sodium Chloride) 50.5 mls @ 202 mls/hr IV ONCE PRN PRN Reason: Nausea and Vomiting Ondansetron HCl (Ondansetron Hcl 4 Mg/2 Ml Vial) 4 mg IVPUSH ONCE PRN PRN Reason: Nausea and Vomiting Time Spent With Patient Time: Total time spent is greater than 50% in coordination of care (as documented) at patient's floor/unit and/or counseling patient: Time with patient: less than 15 minutes Quality Stroke Does the patient have a stroke diagnosis?: Yes Reason for No Anti-thrombotic by Day Two: N/A - Med Ordered VTE Prior VTE?: No VTE Risk Level:: Surgical - moderate VTE Device Contraindication: N/A - Device Ordered VTE Drug Contraindication: Treatment Not Indicated
--- NOTE | 2021-12-11 13:34 | PC.NURSE ---
Patient unable to remove single metal facial piercing. Patient aware of the risks of bringing metal into the OR. Okay to proceed with surgery. Anesthesia and OR nurse aware.
[2021-12-11] MEDS: ceFAZolin Sodium/Dextrose,Iso 2 GM/50 ML PIGGYBACK IV ×2 (13:48→20:16)
--- NOTE | 2021-12-11 16:17 | P.DS_ITS ---
DS: Providers Provider Date of Service: 12/12/21 Date of admission: 12/11/21 11:16 Primary care physician: Unknown Physician DS: Diagnosis Discharge Diagnosis (1) Obesity: Status: Acute (2) BMI 33.0-33.9,adult: Status: Acute (3) GERD (gastroesophageal reflux disease): Status: Acute (4) Hypertension: Status: Acute (5) Depression: Status: Acute (6) Anxiety: Status: Acute (7) Bipolar 1 disorder: Status: Acute (8) TIA (transient ischemic attack): Status: Acute (9) Back pain: Status: Acute (10) Esophagitis determined by endoscopy: Status: Acute DS: Summary Hospital Course Hospital Course: ADMITTING DIAGNOSIS: morbid obesity, GERD, HTN, hx TIA, bipolar depression, para esophageal hernia DISCHARGE DIAGNOSIS: same, s/p laparoscopic sleeve gastrectomy and repair diaphragmatic hernia PAST SURGICAL HISTORY: section, cholecystectomy, tubal ligation PROCEDURE: upper endoscopy, laparoscopic sleeve gastrectomy and repair of diaphragmatic hernia hernia DISCHARGE SUMMARY: History of Present Illness: The patient is a 36 year-old woman with a BMI of 37.9kg/m2 and associated co- morbidities as described above. The patient had extensive work-up,lost 27 lbs preoperatively and was electively scheduled for laparoscopic, possible open sleeve gastrectomy and gastropexy. Risks and complications of the surgery were discussed with the patient in advance, particularly the possibility of , pulmonary embolism, anastomotic leak, bleeding, bowel injury, GERD, cardiac, renal or pulmonary complications. The patient understood all the risks and was in agreement with the surgical plan. Hospital Course: The patient underwent an uneventful laparoscopic sleeve gastrectomy with gastropexy and repair of diaphragmatic hernia on the day of admission. Postoperatively, the patient was transferred to the surgical floor. The patient received IV Acetaminophen and IV dilaudid for pain control. Patient was started on bariatric phase 1 diet POD #0. On postoperative day one, the patient was feeling well without nausea, vomiting, fevers, or tachycardia. The patient had some mild incisional pain and the abdomen was soft. On the morning of postoperative day one, the patient was continued on 1 ounce of water or ice every half hour. During the day, the patient did fairly well, having some incisional pain, but able to ambulate adequately and to tolerate liquids well. Since the patient is doing well, we decided that the patient was ready to be discharged. The patient was given instructions to follow-up with me next week and to call my office for any fever over 101, persistent abdominal pain, nausea, vomiting, GERD, symptoms of DVT such as calf tenderness, or leg swelling, or pulmonary embolism such as chest pain or shortness of breath. The patient was also instructed to drink 40-60 ounces of liquids per day using the 1-ounce cups. The patient had been given prescriptions for Tylenol for pain, Zofran prn for nausea, and pantoprazole and carafate previously. The patient was encouraged to ambulate and use the incentive spirometer. The patient was allowed to shower, but no baths, and encouraged to stay active at home. All of these instructions were given to the patient personally. All questions were answered and the patient understood all instructions, the instructions were also given to the patient in print. 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 [employer] New 4d Resp 16 12/11/21 11:19 BP 124/76 12/11/21 11:19 Pulse Ox 100 12/11/21 11:19 BMI result Body Mass Index 33.6 DS: Data Data Completed and Pending Pending studies at discharge: Pending at discharge 12/11/21 15:30 Surgical [PTH] Routine Labs on day of discharge: Laboratory Results - last 24 hr 12/11/21 11:00 COVID-19 ([facility]) Negative COVID-19 Clin Com See Note Discharge Plan Discharge Anticipated Discharge Date/Time: 12/12/21 10:13 Patient Disposition: Home, Self-Care Discharge Diagnosis: s/p sleeve gastrectomy Referrals: Physician,Unknown J [Primary Care Provider] - 1 Week Discharge Medications: Continued lamotrigine 200 mg tablet 1 tab PO DAILY 0RF metoprolol succinate 50 mg tablet extended release 24 hr 50 mg PO DAILY 0RF clonazepam 1 mg tablet 1 mg PO BID 0RF Discontinued Vitron-C 65 mg iron- 125 mg tablet,delayed release (DR/EC) 1 tab PO DAILY Qty: 30 2RF Rx Instructions: swallow whole; do not chew/break/dissolve/open cholecalciferol (vitamin D3) 125 mcg (5,000 unit) capsule 125 mcg PO DAILY Qty: 30 2RF omeprazole 20 mg capsule,delayed release(DR/EC) 20 mg PO BID 0RF Discharge Orders: Discharge Order (Routine); Ordered 12/12/21 Ordered By: Waqar Espinal Activity on Discharge: As tolerated Stand Alone Forms: Patient Portal Discharge page Care Plan Goals: weight loss Health Concerns: obesity Plan of Treatment: No tub baths, sex or returning to work until discussed at first post op appointment. No exercise, alcohol, tobacco or illegal drug use. Continue to use incentive spirometer hourly while awake. Walk in home for 5- 10 minutes every 2 hours during the first week. Continue phase 1 diet today and start phase 2 diet tomorrow morning. Follow all instructions in the bariatric handbook and call with any questions. 1. Please call your doctor or come back to the emergency room should any new symptoms arise. 2. You will receive a courtesy call from [facility] 24-48 hours after discharge. 3. Activity: abstain from alcohol, practice limited stair climbing, no bending, no driving, no exercise, no illicit substances, no lifting, no sex, no tub bath, no work. 4. Diet: continue as discussed with Dr. Espinal. 5. Dressing Change/Wound Care: Do not change or remove surgical dressings unless they are wet or soiled. 6. Call your doctor if: - Your temperature exceeds 101.5 F - You experience excessive pain or swelling - You have an unexpected reaction to medication - You have excessive bleeding - You experience continued vomiting/nausea - Your incision begins to separate - Your incision shows signs of infection such as increased redness, swelling, excessive pain, heat, or drainage (light blood or clear fluid is normal) 7. General instructions: No lifting greater than 5 lbs for the next 4 weeks[address] within 24 hours of taking narcotic pain medications. If you do not move your bowels in the next 2 days, please take milk of magnesia over the counter. Please follow the post op diet and do not advance your diet until you are seen in the office in about 2 weeks. Please walk around your home every hour or two to prevent blood clots from forming in your legs. You do not need to wake from sleeping to walk. Please sleep in a bed or couch to prevent kinking at the hips and knees. Please take your incentive spirometer (your lung nurse informaticist) home with you and use it for the next few days to prevent pneumonias. You may shower, no hot tubs, baths or swimming pools. Please call the office with any questions or concerns such as increasing abdominal pain, fever, chills, shortness of breath, chest pain, leg pain or swelling, or redness or drainage from your incisions. Do not hesitate to contact the office with any questions at . The patient's medical history has been reviewed and they are considered low risk for post op DVT and therefore DVT prophylaxis is not considered necessary. Travel after surgery was reviewed. The patient has not disclosed any travel plans during the first 30 days after surgery and they have been advised that within the first 30 days after surgery any bus, plane, train or car travel over 2 hours in duration is contraindicated due to the possibility of developing blood clots from immobility. Any travel, needs to include periods of ambulation of 10 minutes in duration every 2 hours. The patient was instructed to discuss any plans for travel during this period with their bariatric surgeon. Assessment: stable post op sleeve gastrectomy and paraesophageal hernia repair
[2021-12-11] MEDS: Famotidine/PF 20 MG/2 ML VIAL IVPUSH ×2 (16:25→20:16)
[2021-12-11] MEDS: HYDROmorphone HCl 0.5 MG/0.5 ML SYRINGE IVPUSH ×2 (16:35→16:42)
[2021-12-11 16:57] LABS: Anion Gap 13 (12-20); Blood Urea Nitrogen 11 mg/dL (9-16); Calcium 8.9 mg/dL (8.4-10.2); Carbon Dioxide 26 mmol/L (22-29); Chloride 102 mmol/L (96-108); Creatinine Clr Calc Pharmacy 108.1; Estimated Glomerular Filt Rate > 60; Glucose Random 106 mg/dL (60-115); Hematocrit 33.4 % (37.0-47.0); Hemoglobin 10.5 g/dl (12.0-16.0); Sodium 137 mmol/L (135-145)
--- NOTE | 2021-12-11 19:24 | PC.NURSE ---
192 patient oob reports bilateral shoulder discomfort. repositioned in bed and warm compress attempt to resolve. encouraged ambulating in pacu. reports nausea while oob. voided 100 ml urine. menstruating new peripad given. patient returned to bed. medicated iv phenergan as ordered.
[2021-12-11] MEDS: clonazePAM 1 MG TABLET PO (20:16)
[2021-12-11] MEDS: ondansetron HCL 4 MG/2 ML VIAL IVPUSH (20:16)
[2021-12-11] MEDS: HYDROmorphone HCl 1 MG/ML SYRINGE 0.25 MG IVPUSH (23:49)
[2021-12-11] MEDS: Metoclopramide HCl 10 MG/2 ML VIAL IVPUSH (23:54)
[2021-12-12] VITALS: BP 141/76; PULSE 82; RESP 17; TEMP 36.9; O2SAT 97
[2021-12-12] MEDS: Lactated Ringers 1,000 ML 100 ML IVCONT (02:10)
[2021-12-12 03:58] VITALS: BP 142/78; PULSE 87; RESP 17; TEMP 37.7; O2SAT 96
[2021-12-12] MEDS: ondansetron HCL 4 MG/2 ML VIAL IVPUSH (04:06)
[2021-12-12 05:39] LABS: Basophils Percent Auto 0.1 % (0-2); Hematocrit 33.4 % (37.0-47.0); Hemoglobin 10.4 g/dl (12.0-16.0); Imm Gran Abs Auto 0.02 X10*3/uL (0.00-0.03); Imm Gran Pct Auto 0.2 % (0.0-0.4); Lymphocytes Absolute Auto 0.6 X10*3/uL (1.2-4.9); Lymphocytes Percent Auto 6.8 % (20-40); MANUAL DIFF FLAG SCAN; Mean Corpuscular HGB Conc 31.1 g/dl (31.0-35.0); Mean Corpuscular Hemoglobin 25.7 pg (27.0-33.0); Mean Corpuscular Volume 82.5 fL (80.0-98.0); Mean Platelet Volume 9.9 fL (9.4-12.3); Monocytes Absolute Auto 0.2 X10*3/uL (0.1-1.2); Monocytes Percent Auto 2.8 % (2-11); Neutrophils Absolute Auto 7.8 x10*3/uL (2.0-8.3); Neutrophils Percent Auto 90.1 % (45-73); Platelet Count 300 X10*3/uL (160-400); Red Blood Count 4.05 X10*6/uL (4.20-5.50); Red Cell Distribution Width 16.3 % (11.0-16.0); SCAN SMEAR FLAG 1; White Blood Count 8.7 X10*3/uL (4.8-10.8)
[2021-12-12 06:01] LABS: Anion Gap 13 (12-20); Blood Urea Nitrogen 8 mg/dL (9-16); Calcium 9.3 mg/dL (8.4-10.2); Carbon Dioxide 24 mmol/L (22-29); Chloride 104 mmol/L (96-108); Creatinine Clr Calc Pharmacy 115.1; Estimated Glomerular Filt Rate > 60; Glucose Random 133 mg/dL (60-115); Potassium 4.3 mmol/L (3.3-5.1); Sodium 137 mmol/L (135-145)
[2021-12-12 06:13] LABS: SLIDE REVIEW VERIFIED
--- NOTE | 2021-12-12 07:06 | HO.POSTANES ---
Post Anesthesia Evaluation Post Anesthesia Evaluation Vital Signs: Vital Signs Temp Pulse Resp BP Pulse Ox 12/12/21 03:58 99.8 F 87 17 142/78 H 96 12/12/21 00:00 98.5 F 82 17 141/76 H 97 12/11/21 19:54 97.4 F 77 15 136/78 99 12/11/21 19:26 84 20 126/72 95 Anesthesia: General Endotracheal-GETA Mental Status: Awake Pain Control: Satisfactory Nausea/Vomiting: None Hydration: Adequate Anesthesia-Related Issues: No Anes. Related Issues
[2021-12-12 07:20] VITALS: BP 115/71; PULSE 88; RESP 18; TEMP 37.3; O2SAT 96
[2021-12-12] MEDS: Famotidine/PF 20 MG/2 ML VIAL IVPUSH (08:03)
[2021-12-12] MEDS: Metoclopramide HCl 10 MG/2 ML VIAL IVPUSH (08:03)
[2021-12-12] MEDS: Metoprolol Succinate ER 50 MG TAB.ER.24H PO (08:04)
[2021-12-12] MEDS: lamoTRIgine 100 MG TABLET 200 MG PO (08:04)
[2021-12-12] MEDS: clonazePAM 1 MG TABLET PO (08:04)
--- NOTE | 2021-12-12 09:48 | MHC.CM.PN ---
EMR REVIEWED, PT S/P LAP SLEEVE GASTRECTOMY AND HERNIA REPAIR, CM MET W/PT WHO IS A&OX3, PT REPORTS SHE LIVES ALONE IN [place] BUT WILL BE STAYING W/HER AUNT WHILE SHE RECOVERS FROM SURGERY, PT IS INDEPENDENT W/ALL CARE, NO DME AND NO HOME SERVICES. PT VERIFIES HER PCP IS PAM JIMENEZ AND WAS PROVIDED EDUCATIONAL INFO ON HCP'S, PT CURRENTLY DECLINES TO COMPLETE ONE. D/C PLAN: HOME TODAY NO SERVICES, FAMILY FOR TRANSPORT. PT REPORTS RECEIVING 2 MODERNA VACCINES, UNSURE OF DATES
== END 2021-12-12 09:59 | disposition home or self-care (01) | DRG 403 ==
LOC: HO.SSSA 16:17 → HO.S3 19:11
PROVIDERS: Physician Assistant; Admitting Provider Surgery; Visit Provider Surgery
PROC: 0DB64Z3 Excision of Stomach, Percutaneous Endoscopic Approach, Vertical (ICD-10-PCS; CPT 43845; principal; 2021-12-11 13:10)
DX: E66.01 Morbid (severe) obesity due to excess calories (principal); K76.0 Fatty (change of) liver, not elsewhere classified; J84.10 Pulmonary fibrosis, unspecified; K44.0 Diaphragmatic hernia with obstruction, without gangrene; F31.9 Bipolar disorder, unspecified; K21.9 Gastro-esophageal reflux disease without esophagitis; M54.9 Dorsalgia, unspecified; I10 Essential (primary) hypertension; K66.0 Peritoneal adhesions (postprocedural) (postinfection); F41.9 Anxiety disorder, unspecified; K20.90 Esophagitis, unspecified without bleeding; Z20.822 Contact with and (suspected) exposure to COVID-19; Z68.33 Body mass index [BMI] 33.0-33.9, adult; Z86.73 Personal history of transient ischemic attack (TIA), and cerebral infarction without residual deficits; Z79.899 Other long term (current) drug therapy
CPT/HCPCS: 36415; 80048; 80053; 80061; 83036; 83525; 84443; 85014; 85018; 85025; 85610; 85730; 86140; 86850; 86900; 86901; 87635; 88307; 88342; 99024; A4649; J0131; J0690; J1100; J1170; J2250; J2405; J2550; J2765; J3010

== ENCOUNTER → 2021-12-17 10:06 | Outpatient (BNVA) | payer MEDICAID, SELFPAY | PROVIDERS: PCP Internal Medicine; Visit Provider Surgery | DX: E66.9 Obesity, unspecified (principal); Z98.84 Bariatric surgery status; Z68.31 Body mass index [BMI] 31.0-31.9, adult | CPT/HCPCS: 99212 ==

== ENCOUNTER → 2022-01-23 08:01 | Outpatient (BNVA) | payer MEDICAID, SELFPAY | PROVIDERS: PCP Internal Medicine; Visit Provider Surgery | DX: E66.3 Overweight (principal); Z68.27 Body mass index [BMI] 27.0-27.9, adult | CPT/HCPCS: 99212 ==

== ENCOUNTER → 2022-02-20 08:16 | Outpatient (BNVA) | payer MEDICAID, SELFPAY | PROVIDERS: PCP Internal Medicine; Visit Provider Dietitian, Registered | DX: Z13.89 Encounter for screening for other disorder (principal) ==